=== PATIENT | female | born 1970 | race Two or more races ===

== ENCOUNTER 2020-07-04 15:29 | Emergency (ER) | payer MEDICAID ==
[~2020-07-04] VITALS: Ht 154.9 cm; Wt 99.8 kg
--- NOTE | 2020-07-04 15:30 | NUR ---
ED Nurse Note: Pt walked into ED for headaches 6/10 pain and bilateral hand numbness for weeks. Pt is alert and orientedx4, ambulatory. She has been seen by ERMD. She denies bodyaches, chills, fever, nausea, vomiting.
--- NOTE | 2020-07-04 15:47 | Emergency Room Report ---
History of Present Illness General Chief Complaint: Headache Source: Patient Present Illness HPI Disclaimer: Please note that this report is being documented using DRAGON technology. This can lead to erroneous entry secondary to incorrect interpretation by the dictating instrument. HPI: 50-year-old female presents for evaluation of headache. History of hypertension, diabetes and hypercholesterolemia. States consistent bitemporal headache with intermittent blurred vision for the past 2 weeks. Seen by her PMD and screened for Covid 2 weeks ago initial headache onset. Referred by PMD today to rule out intracranial mass or other pathology. Denies injury, fall, changes in mentation. Denies fever or chills. Patient reported to triage nurse that she had intermittent tingling in her arms when waking up in the morning. She sleeps with her arms crossed on her stomach and typically has tingling in her fingertips in the morning as a effect. Denies changes in strength sensation or coordination. No other symptoms at this time. Has been using aspirin to treat her headaches without significant improvement. 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 EOMI. PERRLA. Visual brasher are full. No nystagmus. Facial expressions are symmetrical. No facial droop. Cardiovascular: RRR. S1 and S2 normal. No murmur appreciated Resp: Normal work of breathing. No cough, wheezing or crackles appreciated Abdomen: Abdomen is soft, nondistended. Nontender Skin: Intact. No abrasions, laceration or rash over the exposed skin MSK: Normal tone and bulk. Moving all extremities. No obvious deformity. There is no drift in the upper or lower extremities bilaterally. Neuro: Awake and alert. Mentating appropriately. Facial expression symmetrical. No dysarthria, no ataxia on [id number] or [id number]-ud-[id number] testing. Sensation to light touch is intact over the upper and lower extremities. The patient has intact speech with good repetition, comprehension. Fund of knowledge is full. No aphasia, no neglect. NIH: 0 Medical Decision Making Diagnostic Impression: Primary Impression: Headache ER Course Is a 50-year-old female presents for evaluation of 2 weeks persistent headache. Concern for intracranial mass sent by PMD for CT. CT is unremarkable. No mass or bleed or other abnormalities identified. I believe the tingling in her hands is likely related to the way she is sleeping in a transient peripheral nerve issue due to compression. Instructed her to sleep differently but she states she slept that way her whole life. This can be followed up by her PMD. Copies of CT report including discharge paperwork. She can follow-up with PMD for further testing as needed. Discussed return precautions. She understands and agrees with this treatment plan. Last Vital Signs Date Time Temp Pulse Resp B/P (MAP) Pulse Ox O2 Delivery O2 Flow Rate FiO2 07/04/20 15:33 98.2 78 16 118/63 (81) 97 Room Air Disposition: HOME, SELF-CARE Condition: Stable Scripts Ibuprofen* (MOTRIN*) 600 Mg Tablet 600 MG ORAL Q6H PRN for For Pain, #30 TAB 0 Refills Prov: Cruzito Hamlin MD 07/04/20 Cruzito Hamlin MD Jul 04, 2020 15:47
[2020-07-04 15:50] VITALS: BP 123/65
[2020-07-04] MEDS ORDERED: ATORVASTATIN CA20 MG ORAL (15:50)
[2020-07-04] MEDS ORDERED: GLIPIZIDE5 MG ORAL (15:50)
[2020-07-04] MEDS ORDERED: METFORMIN HCL850 M1 ORAL (15:50)
[2020-07-04] MEDS ORDERED: ASPIRIN81 MG ORAL (15:50)
[2020-07-04] MEDS ORDERED: LOSARTAN POTASS50 MG ORAL (15:50)
[2020-07-04] MEDS ORDERED: IBUPROFEN600 M1 ORAL (16:12)
--- NOTE | 2020-07-04 16:19 | Diagnostic Imaging Report ---
Indications: Headache Technique: Spiral acquisitions obtained through the brain. Angled axial and coronal 5 x 5 mm slices were reconstructed. Total dose length product 992 mGycm. CTDI vol(s) 53 mGy. Dose reduction achieved using automated exposure control Comparison: None. Findings: No acute intracranial hemorrhage or edema. No mass effect or midline shift. Normal ding-white differentiation. Normal size ventricles and extra axial CSF spaces. The mastoids are clear. The calvarium is intact. Visualized orbits and sinuses are unremarkable. Impression: Negative The CT scanner at [facility] is accredited by the [employer] and the scans are performed using protocols designed to limit radiation exposure to as low as reasonably achievable to attain images of sufficient resolution adequate for diagnostic evaluation.
[2020-07-04 16:29] VITALS: BP 121/63
--- NOTE | 2020-07-04 16:29 | NUR ---
ER DISCHARGE NOTE: Patient is cleared to be discharged per ERMD, pt is aox4, on room air, with stable vital signs. pt was given dc and prescription instructions, pt was able to verbalize understanding, pt id band removed. pt is able to ambulate with steady gait. pt took all belongings.
[2020-07-04] MEDS ORDERED: HYDROcodone/Acetamin 7.5/325 tab ORAL ONE (16:30)
== END 2020-07-04 16:30 | disposition home or self-care (01) ==
LOC: EMR 16:00
DX: R51.9 Headache, unspecified (principal); E78.00 Pure hypercholesterolemia, unspecified; E11.9 Type 2 diabetes mellitus without complications; I10 Essential (primary) hypertension
CPT/HCPCS: 70450; Z7502; 99284